=== PATIENT | female | born 1940 | race Caucasian/White ===

== ENCOUNTER 2022-12-26 12:20 | Outpatient (CLI) | payer MEDICARE | END 2022-12-26 12:21 | disposition home or self-care (01) | LOC: ULT 12:20 | PROVIDERS: ATTEND Family Medicine | DX: E04.2 Nontoxic multinodular goiter (principal) | CPT/HCPCS: 76536 ==

== ENCOUNTER 2024-01-29 17:53 | Emergency (ER) | payer MEDICARE ==
[2024-01-29] MEDS ORDERED: Sotalol HCl 80 MG TAB PO SCH (18:45)
[2024-01-29 19:47] LABS: #Basophils 0.07 10x3/uL (0.0-0.2); %Basophils 0.8 % (0.0-1.0); %Lymphocytes 21.5 % (21.0-51.0); %Monocytes 8.3 % (0.0-10.0); Hematocrit 40.5 % (36.0-47.0); Hemoglobin 13.8 g/dL (12.0-16.0); Mean Corpuscular HGB CONC 34.1 g/dL (32.0-36.0); Mean Corpuscular Hemoglobin 30.7 pg (27.0-31.0); Mean Corpuscular Volume 90.2 fL (78.0-98.0); Mean Platelet Volume 11.3 fL (7.4-10.4); Platelet Count 292 10x3/uL (130-400); Red Blood Cell (RBC) Count 4.49 mill/uL (4.20-5.40)
[2024-01-29] MEDS ORDERED: dilTIAZem 25 MG/5 ML VIAL ONE (19:50)
[2024-01-29 19:58] LABS: ALT (SGPT) 15 U/L (8-55); AST (SGOT) 17 U/L (5-34); Albumin 3.7 g/dL (3.4-4.8); Alkaline Phosphatase 95 U/L (40-110); Anion Gap 15 mmol/L (10-20); BUN (Urea Nitrogen) 18 mg/dL (9.8-20.1); Bilirubin, Total 0.4 mg/dL (0.2-1.2); Calc. Creatinine Clearance 0 mL/min (70-130); Calcium 9.6 mg/dL (7.8-10.44); Carbon Dioxide 26 mmol/L (23-31); Chloride 104 mmol/L (98-107); Estimated GFR 83; Globulin 4.3 g/dL (2.4-3.5); Glucose 84 mg/dL (83-110); Lipase 60 U/L (8-78); Magnesium 1.9 mg/dL (1.6-2.6); Potassium 3.9 mmol/L (3.5-5.1); Sodium 141 mmol/L (136-145)
[2024-01-29 20:01] LABS: Troponin I Less than 0.010 ng/mL (< 0.028)
== END 2024-01-29 21:59 | disposition home or self-care (01) ==
LOC: ERS 17:53
DX: I48.91 Unspecified atrial fibrillation (principal); I11.0 Hypertensive heart disease with heart failure; I50.9 Heart failure, unspecified
CPT/HCPCS: 71045; 80053; 83690; 83735; 84484; 85025; 93005; 96374

== ENCOUNTER 2024-02-15 15:39 | Outpatient (CLI) | payer MEDICARE | END 2024-02-15 15:40 | disposition home or self-care (01) | LOC: BICRAD 15:39 | PROVIDERS: ATTEND Family Medicine | DX: R91.8 Other nonspecific abnormal finding of lung field (principal); I51.7 Cardiomegaly | CPT/HCPCS: 71046 ==

== ENCOUNTER 2025-03-18 15:11 | Outpatient (CLI) | payer MEDICARE | END 2025-03-18 15:12 | disposition home or self-care (01) | LOC: SCSRAD 15:11 | PROVIDERS: ATTEND Family Medicine | DX: R05.9 Cough, unspecified (principal) | CPT/HCPCS: 71046 ==